=== PATIENT | male | born 1965 | race Caucasian/White ===

== ENCOUNTER 2018-11-27 03:56 | Emergency (ER) | payer MEDICAID ==
[~2018-11-27] VITALS: Ht 172.7 cm; Wt 72.0 kg
[2018-11-27] MEDS ORDERED: normal saline 1000ML IV soln IVB ONE (04:05)
[2018-11-27] MEDS ORDERED: ketorolac tromethamine 15mg/ml inj. IV ONE (04:05)
[2018-11-27] MEDS ORDERED: meperidine/PF 50mg/ml syringe IV ONE (04:05)
[2018-11-27] MEDS ORDERED: tamsulosin 0.4mg capsule PO ONE (04:05)
[2018-11-27 04:25] LABS: CLARITY,URINE SLIGHTLY CLOUDY (Clear); COLOR,URINE AMBER (Yellow); GLUCOSE, URINE NEGATIVE (Neg); KETONES,URINE TRACE mg/dl (Neg); LEUKOCYTE ESTERASE ,URINE SMALL (Neg); NITRITES, URINE NEGATIVE (Neg); OCCULT BLOOD,URINE NEGATIVE (Neg); PROTEIN,URINE NEGATIVE (Neg); UROBILINOGEN,URINE 0.2 E.U/dL (0.2-1.0)
[2018-11-27 04:32] LABS: UA COLLECTION TYPE CLN CATCH MIDSTREAM
[2018-11-27 04:34] LABS: URINE AMPHETAMINE SCREEN NEGATIVE (Neg); URINE BARBITUATE SCREEN NEGATIVE (Neg); URINE BENZODIAZEPINES SCREEN NEGATIVE (Neg); URINE CANNABINOID SCREEN POSITIVE (Neg); URINE COCAINE SCREEN NEGATIVE (Neg); URINE METHADONE SCREEN NEGATIVE (Neg); URINE OPIATE SCREEN NEGATIVE (Neg); URINE PHENCYCLIDINE SCREEN NEGATIVE (Neg)
[2018-11-27 04:36] LABS: BACTERIA,URINE FEW /HPF (Neg); CAL OXALATE CRYSTALS 2+ /HPF (NEGATIVE); MUCUS STRANDS MODERATE /LPF (Neg); RBC,URINE NONE SEEN /HPF (0-2); SQUAMOUS EPITHELIAL CELL,UR FEW /LPF (FEW)
[2018-11-27 05:34] VITALS: BP 138/84
[2018-11-27 05:40] LABS: BASOPHILS # (AUTO) 0.1 X10'3 (0-0.2); BASOPHILS % (AUTO) 0.5 % (0-1); EOSINOPHILS # (AUTO) 0.1 X10'3 (0-0.9); EOSINOPHILS % (AUTO) 1.1 % (0-6); HEMATOCRIT 39.6 % (42.0-52.0); HEMOGLOBIN 13.2 g/dl (14.0-17.9); LYMPHOCYTES # (AUTO) 1.4 X10'3 (1.1-4.8); LYMPHOCYTES % (AUTO) 11.1 % (21-51); MEAN CORPUSCULAR HEMOGLOBIN 32.4 PG (27.0-31.0); MEAN CORPUSCULAR HGB CONC 33.2 g/dL (33.0-36.5); MEAN CORPUSCULAR VOLUME 97.6 FL (78-98); MEAN PLATELET VOLUME 8.2 FL (7.4-10.4); MONOCYTES # (AUTO) 0.8 X10'3 (0-0.9); MONOCYTES % (AUTO) 6.3 % (2-12); NEUTROPHILS # (AUTO) 10.4 X10'3 (1.8-7.7); PLATELET COUNT 289 X10'3 (140-440); RED BLOOD COUNT 4.06 X10'6 (4.70-6.10); RED CELL DISTRIBUTION WIDTH 13.7 % (11.5-14.5); WHITE BLOOD COUNT 12.9 X10'3 (4.5-11.0)
[2018-11-27 05:48] LABS: ALANINE AMINOTRANSFERASE 24 U/L (12-78); ALBUMIN 3.3 G/DL (3.4-5.0); ALBUMIN/GLOBULIN RATIO 1.1 (1.1-1.5); ALKALINE PHOSPHATASE 100 IU/L (46-116); ANION GAP 9 (8-16); ASPARTATE AMINO TRANSFERASE 17 U/L (10-37); BILIRUBIN,TOTAL 0.3 MG/DL (0.1-1.0); BLOOD UREA NITROGEN 18 MG/DL (7-18); BUN/CREATININE RATIO 16.8 (5.4-32.0); CALCIUM 8.3 MG/DL (8.5-10.1); CHLORIDE 104 MMOL/L (99-107); CREATININE 1.07 MG/DL (0.60-1.10); GLUCOSE 112 MG/DL (70-104); LIPASE 175 U/L (73-393); MAGNESIUM 1.8 MG/DL (1.5-2.4); POTASSIUM 3.8 MMOL/L (3.5-5.1); SODIUM 140 MMOL/L (135-145); TOTAL CARBON DIOXIDE 27.1 MMOL/L (24-32); TOTAL PROTEIN 6.2 G/DL (6.4-8.2); eGFR 72 ML/MIN
[2018-11-27 05:53] LABS: PARTIAL THROMBOPLASTIN TIME 27 SECONDS (22-32)
[2018-11-27 05:55] LABS: ETHANOL < 0.010 GM/DL (0.0-0.010)
[2018-11-27] MEDS ORDERED: CEPH500C5 PO (06:33)
[2018-11-27] MEDS ORDERED: ondansetron/PF 4mg/2ml inj IM ONE (06:50)
== END 2018-11-27 07:16 | disposition home or self-care (01) ==
LOC: ER 03:57
DX: N39.0 Urinary tract infection, site not specified (principal); N20.0 Calculus of kidney; R11.2 Nausea with vomiting, unspecified; F12.90 Cannabis use, unspecified, uncomplicated; Z88.7 Allergy status to serum and vaccine; Z79.899 Other long term (current) drug therapy
CPT/HCPCS: 36415; 80053; 80305; 80320; 81001; 83690; 83735; 85025; 85610; 85730; 87088; 96361; 96372; 96374; 96375; 99283; J1885; J2175; J2405; J7030

== ENCOUNTER 2019-02-05 18:37 | Emergency (ER) | payer MEDICAID ==
[~2019-02-05] VITALS: Ht 167.6 cm; Wt 59.5 kg
[~2019-02-05 18:37] MED LIST: CEPH500C5 PO
[2019-02-05] MEDS ORDERED: ketorolac trometh. 30mg/ml inj. IV ONE (18:55)
[2019-02-05] MEDS ORDERED: normal saline 1000ML IV soln IVB ONE (18:55)
[2019-02-05] MEDS ORDERED: ondansetron/PF 4mg/2ml inj IV ONE (18:55)
[2019-02-05 19:25] VITALS: BP 128/92
== END 2019-02-05 19:39 | disposition home or self-care (01) ==
LOC: ER 18:37
DX: R11.2 Nausea with vomiting, unspecified (principal); R51 Headache; F12.90 Cannabis use, unspecified, uncomplicated; Z87.442 Personal history of urinary calculi; Z60.2 Problems related to living alone; Z88.7 Allergy status to serum and vaccine; Z79.899 Other long term (current) drug therapy
CPT/HCPCS: 93005; 96361; 96374; 96375; 99283; J1885; J2405; J7030

== ENCOUNTER 2019-08-23 03:05 | Emergency (ER) | payer MEDICAID ==
[~2019-08-23] VITALS: Ht 167.6 cm; Wt 65.0 kg
[2019-08-23 03:07] VITALS: BP 144/97
[2019-08-23] MEDS ORDERED: LIDOcaine 1% W/epiNEPHrine 1:200,000 10ml vial IJ ONE (03:15)
[2019-08-23] MEDS ORDERED: TETanus/Pertussis (Acell)/Diphther VAC/PF (Tdap-Adult) 0.5ml syringe IMVAC ONE (03:15)
== END 2019-08-23 04:49 | disposition home or self-care (01) ==
LOC: ER 03:05
DX: S06.0X9A Concussion with loss of consciousness of unspecified duration, initial encounter (principal); S01.01XA Laceration without foreign body of scalp, initial encounter; F12.90 Cannabis use, unspecified, uncomplicated; Z87.442 Personal history of urinary calculi; Z60.2 Problems related to living alone; Z88.7 Allergy status to serum and vaccine; Z79.899 Other long term (current) drug therapy; W01.0XXA Fall on same level from slipping, tripping and stumbling without subsequent striking against object, initial encounter; Y93.89 Activity, other specified; Y92.89 Other specified places as the place of occurrence of the external cause; Y99.8 Other external cause status
CPT/HCPCS: 12002; 90471; 90715; 99283

== ENCOUNTER 2019-09-04 11:11 | Emergency (ER) | payer MEDICAID ==
[~2019-09-04] VITALS: Ht 167.6 cm; Wt 59.6 kg
[2019-09-04 11:17] VITALS: BP 136/91
== END 2019-09-04 12:10 | disposition home or self-care (01) ==
LOC: ER 11:11
DX: S01.01XD Laceration without foreign body of scalp, subsequent encounter (principal); F12.90 Cannabis use, unspecified, uncomplicated; Z60.2 Problems related to living alone; Z87.442 Personal history of urinary calculi; Z88.7 Allergy status to serum and vaccine; Z79.899 Other long term (current) drug therapy; X58.XXXD Exposure to other specified factors, subsequent encounter
CPT/HCPCS: 99284